=== PATIENT | female | born 1975 | race Caucasian/White ===

== ENCOUNTER → 2025-07-17 | Outpatient (CLI) | payer OTHER, SELFPAY ==
[2025-07-17 17:36] LABS: Hematocrit 38.1 % (37-47); Hemoglobin 12.2 g/dL (12.0-15.0); Immature Granulocytes Count 0.010 X10^3/uL (0.0-0.0); Mean Corp Hgb Conc 32.0 g/dL (32-36); Mean Corpuscular Volume 89.9 fL (81-99); Mean Platelet Vol. 10.6 fl (6.2-12.0); NRBC Flagged by Analyzer 0 % (0-5); Platelet Count 361 K/mm3 (150-450); RBC Distribution Width CV 13.4 % (11.6-14.6); RBC Distribution Width SD 43.9 fl (35.1-43.9); Red Blood Count 4.24 M/mm3 (4.2-5.4); White Blood Count 3.6 K/mm3 (4.4-11.0)
[2025-07-17 17:46] LABS: AST(SGOT) 29 U/L (<=31); Alanine Aminotransfer ALT/SGPT 23 U/L (<=34); Albumin, Serum 4.2 g/dL (3.5-5.0); Alkaline Phosphatase 61 U/L (35-104); Anion Gap 10 (5-15); BUN 13 mg/dL (4-19); BUN/Creat Ratio 16.6 RATIO (10-20); Calcium,Total 9.3 mg/dL (7.6-11.0); Carbon Dioxide 23.9 mmol/L (21.0-32.0); Chloride 105 mmol/L (98-108); Globulin 2.7 g/dL (2.2-4.2); Glucose 88 mg/dL (70-99); Potassium 4.6 mmol/L (3.3-5.1)
[2025-07-17 20:13] LABS: Fibrinogen 302 mg/dl (203-444)
[2025-07-19 07:07] LABS: HOMOCYSTEINE 7.7 umol/L (0.0-14.5)
[2025-07-20 14:09] LABS: Protein C, Functional 110 % (73-180); Protein S, Funtional 57 % (63-140)
== END | disposition home or self-care (01) ==
PROVIDERS: Referring Provider Nurse Practitioner Family; Visit Provider Nurse Practitioner Family
DX: A79.82 Anaplasmosis [A. phagocytophilum] (principal); A69.20 Lyme disease, unspecified; B60.09 Other babesiosis; N95.9 Unspecified menopausal and perimenopausal disorder; R41.89 Other symptoms and signs involving cognitive functions and awareness; R61 Generalized hyperhidrosis; D68.69 Other thrombophilia; Z82.3 Family history of stroke
CPT/HCPCS: 80053; 83090; 83695; 85025; 85303; 85305; 85306; 85384